=== PATIENT | female | born 1950 | race Hispanic/Latino ===

== ENCOUNTER 2024-06-04 22:00 | Emergency (ER) | payer OTHER ==
[~2024-06-04] VITALS: Ht 160 cm; Wt 99.8 kg
[2024-06-04 22:46] VITALS: PULSE 88; RESP 17; TEMP 98.3
[2024-06-04 23:57] VITALS: BP 138/100; PULSE 76; RESP 17; TEMP 98.6; O2SAT 97
== END 2024-06-05 00:01 | disposition home or self-care (01) ==
LOC: ER 22:07
DX: S80.12XA Contusion of left lower leg, initial encounter (principal); M25.572 Pain in left ankle and joints of left foot; X58.XXXA Exposure to other specified factors, initial encounter
CPT/HCPCS: 93971; 99283